=== PATIENT | female | born 1970 | race Caucasian/White ===

== ENCOUNTER 2019-02-19 22:05 | Emergency (ER) | payer BC, MEDICAID ==
[2019-02-19] MEDS ORDERED: valACYclovir 1,000 MG Tab PO STA (22:44)
--- NOTE | 2019-02-19 22:50 | EDM.PDOC ---
ED HPI GENERAL MEDICAL PROBLEM - General Chief Complaint: Skin Complaint Stated Complaint: SORE ON SHOULDER Time Seen by Provider: 02/19/19 22:38 Source of Information: Reports: Patient, RN Notes Reviewed History Limitations: Reports: No Limitations - History of Present Illness INITIAL COMMENTS - FREE TEXT/NARRATIVE: 48-year-old female presents emergency department today with complaint of rash on her left shoulder, she states initially was very itchy and painful but now a blistering rash has developed it is still very painful she did have chickenpox as a child - Related Data Allergies Allergy/AdvReac Type Severity Reaction Status Date / Time No Known Allergies Allergy Verified 02/19/19 22:22 Home Meds: Home Meds NK [No Known Home Meds] 02/19/19 [History] Past Medical History HEENT History: Reports: Impaired Vision [employer]GER History: Reports: Psychiatric History: Reports: Anxiety, Depression - Infectious Disease History Infectious Disease History: Reports: Chicken Pox Social & Family History - Tobacco Use Smoking Status *Q: Current Every Day Smoker Years of Tobacco use: 30 Packs/Tins Daily: 0.5 Used Tobacco, but Quit: No Second Hand Smoke Exposure: Yes - Caffeine Use Caffeine Use: Reports: Soda, Tea - Alcohol Use Days Per Week of Alcohol Use: 0 - Recreational Drug Use Recreational Drug Use: No ED ROS GENERAL - Review of Systems Review Of Systems: See Below Constitutional: Reports: No Symptoms Skin: Reports: Pruritis, Lesions ED EXAM, SKIN/RASH Exam: See Below Text/Narrative:: Examination of the integument system dermatome number T2 is covered there are approximately 4 vesicles erythematous area approximately 5 cm x 3 cm Exam Limited By: No Limitations General Appearance: Alert, WD/WN, No Apparent Distress Course - Vital Signs Last Recorded V/S: Last Vital Signs Temp 96.6 F 02/19/19 22:28 Pulse 102 H 02/19/19 22:28 Resp 16 02/19/19 22:28 BP 140/86 02/19/19 22:28 Pulse Ox 98 02/19/19 22:28 - Orders/Labs/Meds Orders: Active Orders 24 hr Category Date Time Status valACYclovir [Valtrex] Med 02/19/19 22:44 Stat 1,000 mg PO NOW STA Departure - Departure Time of Disposition: 22:49 Disposition: Home, Self-Care 01 Condition: Fair Clinical Impression: Shingles outbreak Qualifiers: Herpes zoster complications: without complications Qualified Code(s): B02.9 - Zoster without complications - Discharge Information Referrals: PCP,None [Primary Care Provider] - Additional Instructions: Take full course of antiviral , Valtrex 1g by mouth 3 times a day 7 days, hydrocodone 5/325 one tab by mouth 3 times a day when necessary total #10 provided for pain control follow-up primary care 3-5 days if no improvement - My Orders Last 24 Hours: My Active Orders 02/19/19 22:44 valACYclovir [Valtrex] 1,000 mg PO NOW STA - Assessment/Plan Last 24 Hours: My Active Orders 02/19/19 22:44 valACYclovir [Valtrex] 1,000 mg PO NOW STA Plan: Assessment Acuity = acute Site and laterality = shingles outbreak Etiology = varicella-zoster virus Manifestations = pruritus, pain Location of injury = Home Lab values = none Plan Treat with Valtrex 1g by mouth 3 times a day 7 days, hydrocodone 5/325 one tab by mouth 3 times a day when necessary total #10 provided for pain control follow -up primary care 3-5 days if no improvement This note was dictated using Friday recognition software please call with any questions on syntax or grammar.
== END 2019-02-19 23:00 | disposition home or self-care (01) ==
LOC: JP.ED 22:05
DX: B02.9 Zoster without complications (principal); B01.9 Varicella without complication; F17.210 Nicotine dependence, cigarettes, uncomplicated
CPT/HCPCS: 99282; A9270